=== PATIENT | male | born 1980 | race Caucasian/White ===

== ENCOUNTER 2019-04-16 02:24 | Emergency (ER) | payer MEDICAID ==
[2019-04-16] MEDS ORDERED: LIDOCAINE 1%/EPI (MDV) 50 ML INJ INJ ×2 (05:00→05:30)
[2019-04-16] MEDS: LIDOCAINE 1%/EPI 30 ML INJ INJ (05:38)
== END 2019-04-16 07:00 | disposition home or self-care (01) ==
LOC: FTE 02:24
DX: K91.841 Postprocedural hemorrhage of a digestive system organ or structure following other procedure (principal)
CPT/HCPCS: 99282; Z7502